=== PATIENT | female | born 1975 | race Caucasian/White ===

== ENCOUNTER 2017-11-01 20:38 | Observation (INO) | payer OTHER ==
[~2017-11-01] VITALS: Ht 157.5 cm; Wt 71.7 kg
--- NOTE | 2017-11-01 20:42 | ED GI/GU/ABDOMINAL COMPLAINT ---
History of Present Illness General Chief Complaint: Abdominal Pain/Flank Pain Stated Complaint: BIBA ABD PAIN Source: patient Exam Limitations: no limitations Vital Signs & Intake/Output Vital Signs & Intake/Output Vital Signs Date Time Temp Pulse Resp B/P B/P Pulse O2 O2 Flow FiO2 Mean Ox Delivery Rate 11/02 0425 98.4 56 18 108/70 99 Room Air 11/02 0346 98.5 60 16 100/57 98 Room Air 11/01 2054 98.3 75 20 125/60 100 Room Air ED Intake and Output 11/02 0000 11/01 1200 Intake Total 0 Output Total Balance 0 Intake, Oral 0 Allergies Coded Allergies: No Known Allergies (11/01/17) Triage Nurses Notes Reviewed? yes ? n Is pt currently ? No Duration: hour(s): Timing: recent history Quality/Severity: cramping, sharpness Location: epigastric, right upper quadrant Radiation: right shoulder Activities at Onset: none Prior Abdominal Problems: none Modifying Factors: Worsens With: defecating, palpation. Associated Symptoms: abdominal pain HPI: 42 yo woman presents with upper abdominal pain and diarrhea that began after lunch. She shares that she had beef empanadas and a fruit smoothie. Shortly afterwards , she began feeling unwell, with upper abdominal pain, several episodes of diarrhea, without nausea or vomiting. She note the pain is burning, is present in mid epigastrum and right upper quadrant. She also feels the discomfort in her right shoulder. She notes no fever, chills, dizziness, chest pain, dysuria, polyuria. She is otherwise well. Past History Medical History Any Pertinent Medical History? none Surgical History Surgical History: none Family History Hx Contributory? No Review of Systems Review of Systems Constitutional: Reports: no symptoms. EENTM: Reports: no symptoms. Respiratory: Reports: no symptoms. Cardiovascular: Reports: no symptoms. GI: Reports: no symptoms. Genitourinary: Reports: no symptoms. Musculoskeletal: Reports: no symptoms. Skin: Reports: no symptoms. Neurological/Psychological: Reports: no symptoms. Hematologic/Endocrine: Reports: no symptoms. Immunologic/Allergic: Reports: no symptoms. All Other Systems: Reviewed and Negative Physical Exam Physical Exam General Appearance: well developed/nourished, mild distress Head: atraumatic, normal appearance Eyes: Bilateral: normal appearance. Ears, Nose, Throat, Mouth: hearing grossly normal, moist mucous membrane Neck: normal inspection, supple, full range of motion Respiratory: normal breath sounds, chest non-tender, no respiratory distress, quiet respiration, lungs clear Cardiovascular: regular rate/rhythm Gastrointestinal: normal bowel sounds, soft, ruq tenderness without fernandes's sign, mid epigastric tenderness to palpation, no rebound. no guarding. Back: normal inspection Extremities: normal range of motion Neurologic/Psych: no motor/sensory deficits, awake, alert, oriented x 3 Skin: intact, normal color, warm/dry Core Measures ACS in differential dx? No Sepsis Present: No Sepsis Focused Exam Completed? No Progress Differential Diagnosis: appendicitis, cholecystitis, diverticulitis, gastritis, hepatitis, pancreatitis Plan of Care: Orders Procedure Date/time Status Nothing by Mouth 11/02 B Active LIPASE 11/02 07 Active HEPATIC FUNCTION PANEL 11/02 07 Active CBC WITHOUT DIFFERENTIAL 11/02 0700 Active BASIC ELECTROLYTES PLUS BUN&CR 11/02 0700 Active Vital Signs 11/02 0425 Active Teach/Educate 11/02 042 Active Pain Treatment and Response 11/02 042 Active Nutritional Intake, Monitor 11/02 042 Active Isolation 11/02 0425 Active Intake & Output 11/02 0425 Active Patient Care Conference 11/02 0425 Active Activity/Ambulation 11/02 0425 Active Pathway - chart 11/02 0125 Active Patient Data 11/02 0125 Active Vital Signs 11/02 0125 Active Intake & Output 11/02 0125 Active Code Status 11/02 0125 Active US-LIMITED ABDOMEN 11/02 0016 Active Saline Lock 11/[address] in observation 11/02 0014 Active Misc Message 11/02 0014 Active ED Holding Orders 11/02 0014 Active Vital Signs 11/02 0014 Active Code Status 11/02 0014 Complete VTE Mechanical Prophylaxis 11/02 UNK Active HUMAN BETA HCG SCREEN 11/01 2204 Complete TROPONIN LEVEL 11/01 204 Complete LIPASE 11/01 204 Complete HEPATIC FUNCTION PANEL 11/01 2041 Complete CBC WITHOUT DIFFERENTIAL 11/01 2041 Complete BASIC METABOLIC PANEL 11/01 2041 Complete AMYLASE 11/01 2041 Complete EKG 11/01 2041 Active Current Medications Sig/Arian Start time Last Medication Dose Stop Time Status Admin Dextrose/Sodium 1,000 ML Q10H 11/02 0130 AC 11/02 Chloride 0245 (D5W-1/2 Normal Saline 1000ML) Ketorolac 30 MG Q8P PRN 11/02 129 AC Tromethamine (Toradol) Morphine Sulfate 2 MG Q3P PRN 11/02 129 AC (MORPHINE SULFATE) Morphine Sulfate 4 MG Q3P PRN 11/02 129 AC (MORPHINE SULFATE) Ondansetron HCl 4 MG Q6P PRN 11/02 129 AC (Zofran) Laboratory Tests 11/02/17 0125: Total Bilirubin Cancelled, Direct Bilirubin Cancelled, AST Cancelled, ALT Cancelled, Alkaline Phosphatase Cancelled, Total Protein Cancelled, Albumin Cancelled 11/01/17 2204: Anion Gap 7, Estimated GFR > 60, BUN/Creatinine Ratio 21.7, Glucose 118 H, Calcium 9.7, Total Bilirubin 1.5 H, Direct Bilirubin 0.3, AST 724 H, ALT 443 H, Alkaline Phosphatase 73, Troponin I < 0.01, Total Protein 7.3, Albumin 4.1, Amylase 67, Lipase 258, Total Beta HCG NEGATIVE, CBC w Diff MAN DIFF ORDERED, RBC 4.74, MCV 93.0, MCH 31.5 H, MCHC 33.9, RDW 12.0, MPV 8.0, Gran % 93.2 H, Lymphocytes % 2.5 L, Monocytes % 4.0, Eosinophils % 0.2, Basophils % 0.1, Absolute Granulocytes 13.7 H, Segmented Neutrophils 84 H, Band Neutrophils 8 H, Absolute Lymphocytes 0.4 L, Lymphocytes 6 L, Monocytes 2, Absolute Monocytes 0.6, Absolute Eosinophils 0, Absolute Basophils 0, Platelet Estimate ADEQUATE, Normocytic RBCs VERIFIED, Normochromic RBCs VERIFIED 11/01/17 2103: Total Beta HCG Cancelled Diagnostic Imaging: Viewed by Me: CT Scan. Discussed w/RAD: CT Scan. Radiology Impression: PATIENT: CHARLES BARKSDALE PRESENT AGE: 42 PATIENT ACCOUNT NO: [id number] : 74 LOCATION: [facility] ORDERING PHYSICIAN: Jose Barbour MD SERVICE DATE: 11/01/17 EXAM TYPE: CAT - CT ABD & PELVIS W/O IV CONTRAS EXAMINATION: CT ABD PELVIS W/O IV CONTRAS CLINICAL INFORMATION: Reason for Study:
Presumptive Dx: ruq pain, ?choly
Signs Symptoms: room 10
COMPARISON: None TECHNIQUE: Multidetector volumetric imaging was performed from the superior aspect of the liver through the pubic symphysis noncontrasted study Sagittal and coronal reformatted images were obtained on the technologist's workstation. DLP: 334 mGy-cm FINDINGS: LOWER THORAX: Included lung bases are clear. HEPATOBILIARY: No focal hepatic lesions. No biliary ductal dilatation. GALLBLADDER: Gallbladder unremarkable. SPLEEN: Spleen is normal in size. PANCREAS: No focal mass or ductal dilatation. STOMACH AND GASTROINTESTINAL TRACT: Stomach is grossly unremarkable. There is no bowel distention or thickening. Appendix not visualized however no evidence of inflammation in the RIGHT lower quadrant. There is excess amount of stool in the cecum probably constipation ADRENALS: No adrenal nodules. KIDNEYS/URETERS: No hydronephrosis, stones or solid mass lesions. URINARY BLADDER: Partially decompressed. PELVIC VISCERA: There is IUD in place. There are bilateral tubal ligation's. PERITONEUM: No free air or fluid. LYMPH NODES: No lymphadenopathy. VASCULAR:Abdominal aorta normal in size, no aneurysm found. BONES, ABDOMINAL WALL AND SOFT TISSUES: Age-appropriate changes of the spine and skeletal system, no destructive osteolytic or osteosclerotic bone lesion found IMPRESSION: 1. Study Limited noncontrast exam. The liver and the gallbladder are unremarkable. CT scan has limited sensitivity to assess for cholecystitis, if clinically suspected consider follow-up ultrasound and/or HIDA scan. 2. IUD in place and probably tubal ligation devices. 3. Excess amount of stool in the cecum. Could be constipation. DICTATED BY: Prabhjot Jasso MD DATE/TIME DICTATED:11/01/172302 TUBE WASHER:MICKEY DATE/TIME TRANSCRIBED:11/01/172302 CONFIDENTIAL, DO NOT COPY WITHOUT APPROPRIATE AUTHORIZATION. <Electronically signed in Other Vendor System> SIGNED BY: Prabhjot Jasso MD 11/01/17 1554 Initial ED EKG: normal axis, nsr, non specific changes Departure Departure Disposition: HOME OR SELF CARE Condition: Stable Clinical Impression Primary Impression: Abdominal pain Secondary Impressions: Elevated LFTs Referrals: João GARCIA,Milad Araujo Departure Forms: Customer Survey General Discharge Information Comments 11/01/17, 23:35... discussed with dr. roberts... pt with ruq tenderness, elevated lft's, benign ct scan... still concerned re: cholecystitis. Observation Note Spoke With: Lalito GARCIA,Pedro Basurto Patient In: Non-ED OBS Care Area Rationale for Observation: My rational for observation is as follows . pt with elevated lft's, clinical concern for cholecystisis, but with benign ct scan. pt merits serial abdominal exams, u/s in AM, repeat labs in AM, consider GI consult.
[2017-11-01 22:12] LABS: ABSOLUTE BASOPHIL COUNT 0 /CUMM (0.0-0.2); ABSOLUTE EOSINOPHIL COUNT 0 /CUMM (0.0-0.7); ABSOLUTE GRANULOCYTE CT 13.7 /CUMM (1.4-6.5); ABSOLUTE LYMPH COUNT 0.4 /CUMM (1.2-3.4); ABSOLUTE MONOCYTE COUNT 0.6 /CUMM (0.10-0.60); BASOPHIL % 0.1 % (0.0-2.0); EOSINOPHIL % 0.2 % (0-5); GRANULOCYTE % 93.2 % (42.2-75.2); HEMATOCRIT 44.1 % (37-47); MEAN CORPUSCULAR HGB 31.5 PG (27.0-31.0); MEAN CORPUSCULAR HGB CONC 33.9 G/DL (33.0-37.0); PLATELET COUNT 260 /CUMM (130-400); RED BLOOD CELL CT 4.74 /CUMM (4.20-5.40); WHITE BLOOD CELL COUNT 14.7 /CUMM (4.8-10.8)
--- NOTE | 2017-11-01 23:20 | CT SCAN REPORT ---
EXAMINATION: CT ABD PELVIS W/O IV CONTRAS CLINICAL INFORMATION: Reason for Study:
Presumptive Dx: ruq pain, ?choly
Signs Symptoms: room 10
COMPARISON: None TECHNIQUE: Multidetector volumetric imaging was performed from the superior aspect of the liver through the pubic symphysis noncontrasted study Sagittal and coronal reformatted images were obtained on the technologist's workstation. DLP: 334 mGy-cm FINDINGS: LOWER THORAX: Included lung bases are clear. HEPATOBILIARY: No focal hepatic lesions. No biliary ductal dilatation. GALLBLADDER: Gallbladder unremarkable. SPLEEN: Spleen is normal in size. PANCREAS: No focal mass or ductal dilatation. STOMACH AND GASTROINTESTINAL TRACT: Stomach is grossly unremarkable. There is no bowel distention or thickening. Appendix not visualized however no evidence of inflammation in the RIGHT lower quadrant. There is excess amount of stool in the cecum probably constipation ADRENALS: No adrenal nodules. KIDNEYS/URETERS: No hydronephrosis, stones or solid mass lesions. URINARY BLADDER: Partially decompressed. PELVIC VISCERA: There is IUD in place. There are bilateral tubal ligation's. PERITONEUM: No free air or fluid. LYMPH NODES: No lymphadenopathy. VASCULAR:Abdominal aorta normal in size, no aneurysm found. BONES, ABDOMINAL WALL AND SOFT TISSUES: Age-appropriate changes of the spine and skeletal system, no destructive osteolytic or osteosclerotic bone lesion found IMPRESSION: 1. Study Limited noncontrast exam. The liver and the gallbladder are unremarkable. CT scan has limited sensitivity to assess for cholecystitis, if clinically suspected consider follow-up ultrasound and/or HIDA scan. 2. IUD in place and probably tubal ligation devices. 3. Excess amount of stool in the cecum. Could be constipation.
--- NOTE | 2017-11-02 01:20 | Cons- General Surgery ---
Karen Ryan 11/02/17 0110: General Information and HPI Consulting Request Date of Consult: 11/02/17 Requested By: Dr. Barbour Reason for Consult: right upper quadrant pain Source of Information: patient, family Exam Limitations: no limitations History of Present Illness: 42-year-old healthy female presents to the emergency room complaining of diffuse epigastric pain that radiated to the right upper quadrant that began earlier today after lunch. Around 2:30 today she went out to have lunch with her friend and started to have diffuse abdominal cramping pressure with the sensation of fullness underneath her ribs followed by 4 episodes of diarrhea. She felt that she was having gas pains however the pressure did not subside. She felt nauseous however had no episodes of vomiting. Patient denies fever or chills and is otherwise healthy. She recently was on amoxicillin for a right ear infection. She has finished this medication Allergies/Medications Allergies: Coded Allergies: No Known Allergies (11/01/17) Current Medications: Current Medications Sig/Arian Start time Last Medication Dose Route Stop Time Status Admin Acetaminophen 0 .STK-MED ONE 11/02 2215 DC IV Acetaminophen 1,000 MG ONCE ONE 11/01 2100 DC 11/01 N/A 1 UNIT IV 11/01 2113 2224 Ketorolac 0 .STK-MED ONE 11/02 2215 DC Tromethamine .ROUTE Ketorolac 30 MG ONCE ONE 11/01 2100 DC 11/01 Tromethamine IV 11/01 2100 2224 Pantoprazole Sodium 0 .STK-MED ONE 11/02 2215 DC IV Pantoprazole Sodium 40 MG ONCE ONE 11/01 2100 DC 11/01 IV 11/01 2101 2224 Past History Medical History Other Medical Hx: No prior medical history Surgical History Pertinent Surgical History: 1 Psychosocial History Where Do You Live? Home Smoking Status: Current Everyday Smoker ETOH Use: denies use Review of Systems Review of Systems Constitutional: Denies: chills, diaphoresis, fever. EENTM: Denies: no symptoms. Cardiovascular: Denies: chest pain, palpitations, peripheral edema. Respiratory: Denies: cough, short of breath. GI: Reports: abdominal pain, bloating, diarrhea, nausea. Denies: vomiting. Genitourinary: Denies: no symptoms. Musculoskeletal: Denies: no symptoms. Exam & Diagnostic Data Vital Signs and I&O Vital Signs Date Time Temp Pulse Resp B/P B/P Pulse O2 O2 Flow FiO2 Mean Ox Delivery Rate 11/01 2053 98.3 75 20 125/60 100 Room Air Intake & Output 11/02 1600 Intake Total 0 Output Total Balance 0 Intake, Oral 0 Physical Exam: Physical examination patient is alert and oriented and appears comfortable HEENT is within normal limits Neck is supple nontender with active range of motion Chest is clear to auscultation symmetric without rales rhonchi or wheeze Heart regular rate rhythm without murmurs rubs gallops Abdomen is rounded with mild distention no guarding no rebound positive bowel sounds there is mild tenderness in the epigastric area and right upper quadrant but no Willett sign. She has just been medicated and her symptoms have been relieved Bilateral lower extremities are without edema and have good perfusion Last 24 Hours of Labs: Laboratory Tests 11/01 2103 Chemistry Sodium (137 - 145 mmol/L) 139 Potassium (3.5 - 5.1 mmol/L) 3.6 Chloride (98 - 107 mmol/L) 103 Carbon Dioxide (22 - 30 mmol/L) 29 Anion Gap (5 - 16) 7 BUN (7 - 17 mg/dL) 13 Creatinine (0.5 - 1.0 mg/dL) 0.6 Estimated GFR (>60 ml/min) > 60 BUN/Creatinine Ratio (7 - 25 %) 21.7 Glucose (65 - 99 mg/dL) 118 H Calcium (8.4 - 10.2 mg/dL) 9.7 Total Bilirubin (0.2 - 1.3 mg/dL) 1.5 H Direct Bilirubin (< 0.4 mg/dL) 0.3 AST (14 - 36 U/L) 724 H ALT (9 - 52 U/L) 443 H Alkaline Phosphatase (<127 U/L) 73 Troponin I (< 0.11 ng/ml) < 0.01 Total Protein (6.3 - 8.2 g/dL) 7.3 Albumin (3.5 - 5.0 g/dL) 4.1 Amylase (30 - 110 U/L) 67 Lipase (23 - 300 U/L) 258 Total Beta HCG (NEGATIVE) NEGATIVE Cancelled Hematology CBC w Diff MAN DIFF ORDERED WBC (4.8 - 10.8 /CUMM) 14.7 H RBC (4.20 - 5.40 /CUMM) 4.74 Hgb (12.0 - 16.0 G/DL) 14.9 Hct (37 - 47 %) 44.1 MCV (81.0 - 99.0 FL) 93.0 MCH (27.0 - 31.0 PG) 31.5 H MCHC (33.0 - 37.0 G/DL) 33.9 RDW (11.5 - 14.5 %) 12.0 Plt Count (130 - 400 /CUMM) 260 MPV (7.4 - 10.4 FL) 8.0 Gran % (42.2 - 75.2 %) 93.2 H Lymphocytes % (20.5 - 51.1 %) 2.5 L Monocytes % (1.7 - 9.3 %) 4.0 Eosinophils % (0 - 5 %) 0.2 Basophils % (0.0 - 2.0 %) 0.1 Absolute Granulocytes (1.4 - 6.5 /CUMM) 13.7 H Segmented Neutrophils (42.2 - 75.2 %) 84 H Band Neutrophils (0.0 - 5.0 %) 8 H Absolute Lymphocytes (1.2 - 3.4 /CUMM) 0.4 L Lymphocytes (20.5 - 51.1 %) 6 L Monocytes (1.7 - 9.3 %) 2 Absolute Monocytes (0.10 - 0.60 /CUMM) 0.6 Absolute Eosinophils (0.0 - 0.7 /CUMM) 0 Absolute Basophils (0.0 - 0.2 /CUMM) 0 Platelet Estimate (ADEQUATE) ADEQUATE Normocytic RBCs VERIFIED Normochromic RBCs VERIFIED Imaging Results: CAT scan of the abdomen and pelvis show a normal appearing gallbladder Admission Lab Results I reviewed the following labs: Laboratory Tests 11/01 11/01 2204 2103 Chemistry Sodium (137 - 145 mmol/L) 139 Potassium (3.5 - 5.1 mmol/L) 3.6 Chloride (98 - 107 mmol/L) 103 Carbon Dioxide (22 - 30 mmol/L) 29 Anion Gap (5 - 16) 7 BUN (7 - 17 mg/dL) 13 Creatinine (0.5 - 1.0 mg/dL) 0.6 Estimated GFR (>60 ml/min) > 60 BUN/Creatinine Ratio (7 - 25 %) 21.7 Glucose (65 - 99 mg/dL) 118 H Calcium (8.4 - 10.2 mg/dL) 9.7 Total Bilirubin (0.2 - 1.3 mg/dL) 1.5 H Direct Bilirubin (< 0.4 mg/dL) 0.3 AST (14 - 36 U/L) 724 H ALT (9 - 52 U/L) 443 H Alkaline Phosphatase (<127 U/L) 73 Troponin I (< 0.11 ng/ml) < 0.01 Total Protein (6.3 - 8.2 g/dL) 7.3 Albumin (3.5 - 5.0 g/dL) 4.1 Amylase (30 - 110 U/L) 67 Lipase (23 - 300 U/L) 258 Total Beta HCG (NEGATIVE) NEGATIVE Cancelled Hematology CBC w Diff MAN DIFF ORDERED WBC (4.8 - 10.8 /CUMM) 14.7 H RBC (4.20 - 5.40 /CUMM) 4.74 Hgb (12.0 - 16.0 G/DL) 14.9 Hct (37 - 47 %) 44.1 MCV (81.0 - 99.0 FL) 93.0 MCH (27.0 - 31.0 PG) 31.5 H MCHC (33.0 - 37.0 G/DL) 33.9 RDW (11.5 - 14.5 %) 12.0 Plt Count (130 - 400 /CUMM) 260 MPV (7.4 - 10.4 FL) 8.0 Gran % (42.2 - 75.2 %) 93.2 H Lymphocytes % (20.5 - 51.1 %) 2.5 L Monocytes % (1.7 - 9.3 %) 4.0 Eosinophils % (0 - 5 %) 0.2 Basophils % (0.0 - 2.0 %) 0.1 Absolute Granulocytes (1.4 - 6.5 /CUMM) 13.7 H Segmented Neutrophils (42.2 - 75.2 %) 84 H Band Neutrophils (0.0 - 5.0 %) 8 H Absolute Lymphocytes (1.2 - 3.4 /CUMM) 0.4 L Lymphocytes (20.5 - 51.1 %) 6 L Monocytes (1.7 - 9.3 %) 2 Absolute Monocytes (0.10 - 0.60 /CUMM) 0.6 Absolute Eosinophils (0.0 - 0.7 /CUMM) 0 Absolute Basophils (0.0 - 0.2 /CUMM) 0 Platelet Estimate (ADEQUATE) ADEQUATE Normocytic RBCs VERIFIED Normochromic RBCs VERIFIED Assessment/Plan Assessment/Plan 42-year-old healthy female presented to the emergency room with acute right upper quadrant pain and tenderness. Symptoms concerning for acute cholecystitis however CAT scan shows normal findings. She has an elevated WBC count with elevation in her LFTs. She will have repeat lab work in the a.m. We will order an ultrasound in the morning until then she will be nothing by mouth and continue with IV fluids. Serial abdominal exams and pain medication as needed. Alps for DVT prophylaxis. She reports no major medical problems and takes no meds at home Problem List: 1. Abdominal pain Consult Acknowledgment - Thank you for your consult request. Pedro Starkey MD 11/02/17 1009: Assessment/Plan Consult Acknowledgment - Thank you for your consult request. Attending MD Review Statement Attending Statement Attending MD Statement: examined this patient, discuss w/resident/PA/LABEL DRIER, reviewed images Attending Assessment/Plan: This is a healthy 42-year-old woman without medical or surgical history who presents with severe epigastric and right upper quadrant abdominal pain with radiation to the back. This is associated with nausea and diarrhea, profuse. This is the first episode. Pain began after lunch yesterday and was unrelenting. Currently she feels much better. There is absence of pain. Physical examination reveals a healthy-appearing woman in no distress. HEENT is within normal limits. Heart is regular no murmurs rubs or gallops, lungs are clear to auscultation bilaterally. Abdomen soft nontender negative Willett sign. No hernias no mass. Laboratory data reveals white cell count of 14,000 and elevated AST, ALT and total bilirubin. CT scan images were personally reviewed. Findings show no gallbladder distention or pericholecystic inflammatory changes or gallstones. Images are difficult to interpret for biliary ductal dilatation due to the lack of IV contrast. Overall impression is that of choledocholithiasis or viral hepatitis. Ultrasound is currently pending. If there is no evidence of gallstones or secondary changes of choledocholithiasis, she can be started on a clear liquid diet. Hepatitis panel is pending. Final disposition will be determined after above testing.
[2017-11-02 04:25] VITALS: BP 108/70
--- NOTE | 2017-11-02 07:29 | PN- Student ---
See Addendum Keila Travis 11/02/17 0617: Subjective Subjective: Went to see pt this morning and she is feeling much improved from her time of admission yesterday. This morning she does not have any pain. Since her four episodes of diarrhea prior to admission, the pt hasn't had any more. She hasn't had any episodes of vomiting. Her diaphoresis and chills from yesterday upon admission have resolved. Yesterday she felt she was having trouble breathing, this morning she states she is breathing w/o difficulty. Objective Objective: Gen: O&Ax3, laying in bed comfortably, in no apparent distress Lungs: CTA Heart: S1 and S2 normal, RRR Abdomen: normoactive bs, soft, nt/nd, no rigidity/guarding, negative fernandes sign Skin: warm/dry Assessment/Plan Assessment: Pt is a 42 yo female without any PMHx that presented yesterday with RUQ/ epigastric pain. Was admitted yesterday and will go for US to assess for cholecystitis this am, currently stable. Plan: -Abdominal US this AM -AM labs pending, monitor -NPO, IV fluids -Pain control as ordered -Unasyn q6 IV -Zofran prn for nausea Chacha Anthony 11/02/17 2365: Assessment/Plan Plan: AGREE WITH ABOVE MEGS NOTE currently npo / iv fluids iv unasyn for possible cholecystitis f/u LFTs and abdominal ultrasound hep sc added - dvt ppx protonix - gi ppx may consider GI consult if worsening transaminitis / evidence of cbd stone by ultrasound will d/w observation status given possibility for discharge in the next 24 hours
[2017-11-02 10:12] LABS: ABSOLUTE BASOPHIL COUNT 0 /CUMM (0.0-0.2); ABSOLUTE EOSINOPHIL COUNT 0 /CUMM (0.0-0.7); ABSOLUTE GRANULOCYTE CT 20.4 /CUMM (1.4-6.5); ABSOLUTE LYMPH COUNT 0.6 /CUMM (1.2-3.4); ABSOLUTE MONOCYTE COUNT 0.6 /CUMM (0.10-0.60); BASOPHIL % 0 % (0.0-2.0); EOSINOPHIL % 0 % (0-5); GRANULOCYTE % 94.5 % (42.2-75.2); HEMATOCRIT 40.4 % (37-47); MEAN CORPUSCULAR HGB 31.8 PG (27.0-31.0); MEAN CORPUSCULAR HGB CONC 34.2 G/DL (33.0-37.0); MEAN PLATELET VOLUME 8.8 FL (7.4-10.4); PLATELET COUNT 296 /CUMM (130-400); RBC DISTRIBUTION WIDTH 12.1 % (11.5-14.5); RED BLOOD CELL CT 4.34 /CUMM (4.20-5.40); WHITE BLOOD CELL COUNT 21.6 /CUMM (4.8-10.8)
--- NOTE | 2017-11-02 10:13 | ULTRASOUND REPORT ---
EXAMINATION: US ABDOMEN LIMITED CLINICAL INFORMATION: Back pain and right upper quadrant abdominal pain. Sweats. Shortness of breath. Weakness.. COMPARISON: CT scan of the abdomen and pelvis 11/01/2017. TECHNIQUE: Real-time imaging of the right upper quadrant abdominal viscera. FINDINGS: PANCREAS: Visualized portions of the pancreatic head and body are normal. The tail is largely obscured by gas. LIVER: Normal. The liver demonstrates normal size, contour and echogenicity. No focal lesion or intrahepatic biliary duct dilatation. GALLBLADDER: Normal. The gallbladder is physiologically distended without evidence of stones, sludge, polyps, wall thickening or pericholecystic fluid. COMMON BILE DUCT: Normal in caliber measuring 0.4 cm in diameter. RIGHT KIDNEY: Normal. No hydronephrosis. No renal calculi or focal parenchymal lesions. The kidney measures 10.2 cm in maximum dimension. FREE FLUID: None. IMPRESSION: Normal right upper quadrant ultrasound.
[2017-11-02 14:06] VITALS: BP 120/70
--- NOTE | 2017-11-02 21:00 | Cons- Gastroenterology ---
General Information and HPI Consulting Request Date of Consult: 11/02/17 Requested By: Pedro Starkey MD Reason for Consult: 1. Abnormal liver associated enzymes 2. Epigastric Pain Source of Information: patient Exam Limitations: no limitations History of Present Illness: Ms. Bustos is a 42-year-old female who is in her usual state of health until the night prior to admission when she went out to dinner with a friend. She had an empanada as as well as a frozen fruit drink from [facility]. Her friend had the same thing to eat with the exception of the fruit drink. She went home and was doing well however she developed epigastric discomfort and bloating and took Gas -X. She then developed bandlike epigastric pain which radiated to the back associated with diaphoresis. She did not have any nausea or vomiting and she did not have a fever although she did develop chills. She does not use Tylenol. she does not have any tattoos. She has no history of excessive alcohol use or IV drug use. She drinks rare social alcohol. She has a new partner with whom she is monogamous. She reports that she had an ear infection last week and was given amoxicillin for this. She has no family history of liver disease. She has had no insect bites and has no unusual travel recently. She has not consumed any raw seafood. She has lived in this country [place] over [place]. She is currently feeling well and is no longer having any abdominal pain. She had a CT Scan of the abdomen and pelvis, the results of which are as follows : FINDINGS: LOWER THORAX: Included lung bases are clear. HEPATOBILIARY: No focal hepatic lesions. No biliary ductal dilatation. GALLBLADDER: Gallbladder unremarkable. SPLEEN: Spleen is normal in size. PANCREAS: No focal mass or ductal dilatation. STOMACH AND GASTROINTESTINAL TRACT: Stomach is grossly unremarkable. There is no bowel distention or thickening. Appendix not visualized however no evidence of inflammation in the RIGHT lower quadrant. There is excess amount of stool in the cecum probably constipation ADRENALS: No adrenal nodules. KIDNEYS/URETERS: No hydronephrosis, stones or solid mass lesions. URINARY BLADDER: Partially decompressed. PELVIC VISCERA: There is IUD in place. There are bilateral tubal ligation's. PERITONEUM: No free air or fluid. LYMPH NODES: No lymphadenopathy. VASCULAR:Abdominal aorta normal in size, no aneurysm found. BONES, ABDOMINAL WALL AND SOFT TISSUES: Age-appropriate changes of the spine and skeletal system, no destructive osteolytic or osteosclerotic bone lesion found IMPRESSION: 1. Study Limited noncontrast exam. The liver and the gallbladder are unremarkable. CT scan has limited sensitivity to assess for cholecystitis, if clinically suspected consider follow-up ultrasound and/or HIDA scan. 2. IUD in place and probably tubal ligation devices. 3. Excess amount of stool in the cecum. Could be constipation. She had an ultrasound the results of which are below. FINDINGS: (US) PANCREAS: Visualized portions of the pancreatic head and body are normal. The tail is largely obscured by gas. LIVER: Normal. The liver demonstrates normal size, contour and echogenicity. No focal lesion or intrahepatic biliary duct dilatation. GALLBLADDER: Normal. The gallbladder is physiologically distended without evidence of stones, sludge, polyps, wall thickening or pericholecystic fluid. COMMON BILE DUCT: Normal in caliber measuring 0.4 cm in diameter. RIGHT KIDNEY: Normal. No hydronephrosis. No renal calculi or focal parenchymal lesions. The kidney measures 10.2 cm in maximum dimension. FREE FLUID: None. IMPRESSION: Normal right upper quadrant ultrasound. On admission her WBC were 14.7 with an H&H of 14.9/44.1 and 260,000 platelets. Next morning her WBC increased to 21.6 with an H&H of 13.8/40.8 and 296,000 platelets. She had 84 segs and 11 bands. Her total bilirubin went from 1.5-2. Her AST/ALT from 724/443 to 722/882. Her alk phos went from 73-68. Serologies for hepatitis A, B, and C were all negative/nonreactive. She is eager to eat. She is quite comfortable. She has no family history of liver disease or biliary disease. Allergies/Medications Allergies: Coded Allergies: No Known Allergies (11/01/17) Home Med List: No Known Home Medications Past History Travel History Traveled to [place] past 21 day No Medical History Blood Transfusion Hx: No Neurological: NONE EENT: NONE Cardiovascular: NONE Respiratory: NONE Gastrointestinal: NONE Hepatic: cholangitis Renal: NONE Musculoskeletal: NONE Psychiatric: NONE Endocrine: NONE Blood Disorders: NONE Cancer(s): NONE DRILL OPERATOR PNEUMATIC/Reproductive: NONE Other Medical Hx: No prior medical history Surgical History Surgical History: 1 Psychosocial History Where Do You Live? Home Smoking Status: Current Everyday Smoker ETOH Use: denies use Review of Systems Review of Systems Constitutional: Reports: see HPI. EENTM: Reports: no symptoms. Cardiovascular: Reports: no symptoms. Respiratory: Reports: no symptoms. GI: Reports: see HPI. Genitourinary: Reports: see HPI. Musculoskeletal: Reports: see HPI. Skin: Reports: see HPI. Neurological/Psychological: Reports: see HPI. Hematologic/Endocrine: Reports: see HPI. Exam & Diagnostic Data Vital Signs and I&O Vital Signs Date Time Temp Pulse Resp B/P B/P Pulse O2 O2 Flow FiO2 Mean Ox Delivery Rate 11/02 1406 99.7 60 18 120/70 98 Room Air 11/02 0425 98.4 56 18 108/70 99 Room Air 11/02 0346 98.5 60 16 100/57 98 Room Air 11/01 2054 98.3 75 20 125/60 100 Room Air Intake & Output 11/02 1600 11/02 0400 11/01 1600 11/01 0400 10/31 1600 10/31 0400 Intake Total 200 0 Output Total Balance 200 0 Intake, IV 200 Intake, Oral 0 Patient 158 lb Weight Physical Exam General Appearance: well developed/nourished, no apparent distress, comfortable Head: atraumatic, normal appearance Eyes: Bilateral: normal appearance. Ears, Nose, Throat: hearing grossly normal Neck: supple, full range of motion Respiratory: normal breath sounds, no respiratory distress, lungs clear Cardiovascular: regular rate/rhythm, Normal S1 and S2 without rub, murmur or gallop Gastrointestinal: normal bowel sounds, soft, non-tender Back: normal inspection Extremities: normal inspection, no edema Neurologic/Psych: awake, alert, oriented x 3 Cranial Nerves: Cranial nerves II-XII grossly intact Skin: intact, normal color, warm/dry Results Pertinent Lab Results: Laboratory Tests 11/02 11/02 0907 0700 Chemistry Sodium (137 - 145 mmol/L) 138 Potassium (3.5 - 5.1 mmol/L) 4.2 Chloride (98 - 107 mmol/L) 107 Carbon Dioxide (22 - 30 mmol/L) 22 Anion Gap (5 - 16) 9 BUN (7 - 17 mg/dL) 9 Creatinine (0.5 - 1.0 mg/dL) 0.6 Estimated GFR (>60 ml/min) > 60 BUN/Creatinine Ratio (7 - 25 %) 15.0 Total Bilirubin (0.2 - 1.3 mg/dL) 2.0 H Direct Bilirubin (< 0.4 mg/dL) 0.3 AST (14 - 36 U/L) 722 H ALT (9 - 52 U/L) 882 H Alkaline Phosphatase (<127 U/L) 68 Total Protein (6.3 - 8.2 g/dL) 6.9 Albumin (3.5 - 5.0 g/dL) 3.7 Lipase (23 - 300 U/L) 65 Hematology CBC w Diff MAN DIFF ORDERED WBC (4.8 - 10.8 /CUMM) 21.6 H RBC (4.20 - 5.40 /CUMM) 4.34 Hgb (12.0 - 16.0 G/DL) 13.8 Hct (37 - 47 %) 40.4 MCV (81.0 - 99.0 FL) 93.0 MCH (27.0 - 31.0 PG) 31.8 H MCHC (33.0 - 37.0 G/DL) 34.2 RDW (11.5 - 14.5 %) 12.1 Plt Count (130 - 400 /CUMM) 296 MPV (7.4 - 10.4 FL) 8.8 Gran % (42.2 - 75.2 %) 94.5 H Lymphocytes % (20.5 - 51.1 %) 2.6 L Monocytes % (1.7 - 9.3 %) 2.9 Eosinophils % (0 - 5 %) 0 Basophils % (0.0 - 2.0 %) 0 Absolute Granulocytes (1.4 - 6.5 /CUMM) 20.4 H Segmented Neutrophils (42.2 - 75.2 %) 84 H Band Neutrophils (0.0 - 5.0 %) 11 H Absolute Lymphocytes (1.2 - 3.4 /CUMM) 0.6 L Lymphocytes (20.5 - 51.1 %) 3 L Monocytes (1.7 - 9.3 %) 2 Absolute Monocytes (0.10 - 0.60 /CUMM) 0.6 Absolute Eosinophils (0.0 - 0.7 /CUMM) 0 Absolute Basophils (0.0 - 0.2 /CUMM) 0 Platelet Estimate (ADEQUATE) VERIFIED BY SMEAR Normocytic RBCs VERIFIED Normochromic RBCs VERIFIED Serology Hepatitis A IgM Ab (NONREACTIVE) NONREACTIVE Cancelled Hep Bs Antigen (NONREACTIVE) NONREACTIVE Cancelled Hep B Core IgM Ab Conf (NONREACTIVE) NONREACTIVE Cancelled Hepatitis C Antibody (NONREACTIVE) NONREACTIVE Cancelled 11/02 11/01 0125 2204 Chemistry Sodium (137 - 145 mmol/L) 139 Potassium (3.5 - 5.1 mmol/L) 3.6 Chloride (98 - 107 mmol/L) 103 Carbon Dioxide (22 - 30 mmol/L) 29 Anion Gap (5 - 16) 7 BUN (7 - 17 mg/dL) 13 Creatinine (0.5 - 1.0 mg/dL) 0.6 Estimated GFR (>60 ml/min) > 60 BUN/Creatinine Ratio (7 - 25 %) 21.7 Glucose (65 - 99 mg/dL) 118 H Calcium (8.4 - 10.2 mg/dL) 9.7 Total Bilirubin (0.2 - 1.3 mg/dL) Cancelled 1.5 H Direct Bilirubin (< 0.4 mg/dL) Cancelled 0.3 AST (14 - 36 U/L) Cancelled 724 H ALT (9 - 52 U/L) Cancelled 443 H Alkaline Phosphatase (<127 U/L) Cancelled 73 Troponin I (< 0.11 ng/ml) < 0.01 Total Protein (6.3 - 8.2 g/dL) Cancelled 7.3 Albumin (3.5 - 5.0 g/dL) Cancelled 4.1 Amylase (30 - 110 U/L) 67 Lipase (23 - 300 U/L) 258 Total Beta HCG (NEGATIVE) NEGATIVE Hematology CBC w Diff MAN DIFF ORDERED WBC (4.8 - 10.8 /CUMM) 14.7 H RBC (4.20 - 5.40 /CUMM) 4.74 Hgb (12.0 - 16.0 G/DL) 14.9 Hct (37 - 47 %) 44.1 MCV (81.0 - 99.0 FL) 93.0 MCH (27.0 - 31.0 PG) 31.5 H MCHC (33.0 - 37.0 G/DL) 33.9 RDW (11.5 - 14.5 %) 12.0 Plt Count (130 - 400 /CUMM) 260 MPV (7.4 - 10.4 FL) 8.0 Gran % (42.2 - 75.2 %) 93.2 H Lymphocytes % (20.5 - 51.1 %) 2.5 L Monocytes % (1.7 - 9.3 %) 4.0 Eosinophils % (0 - 5 %) 0.2 Basophils % (0.0 - 2.0 %) 0.1 Absolute Granulocytes (1.4 - 6.5 /CUMM) 13.7 H Segmented Neutrophils (42.2 - 75.2 %) 84 H Band Neutrophils (0.0 - 5.0 %) 8 H Absolute Lymphocytes (1.2 - 3.4 /CUMM) 0.4 L Lymphocytes (20.5 - 51.1 %) 6 L Monocytes (1.7 - 9.3 %) 2 Absolute Monocytes (0.10 - 0.60 /CUMM) 0.6 Absolute Eosinophils (0.0 - 0.7 /CUMM) 0 Absolute Basophils (0.0 - 0.2 /CUMM) 0 Platelet Estimate (ADEQUATE) ADEQUATE Normocytic RBCs VERIFIED Normochromic RBCs VERIFIED 11/01 2102 Chemistry Total Beta HCG Cancelled Assessment/Plan Assessment/Recommendations: ASSESSMENT: 1. Elevated Transaminases 2. Leukocytosis 3. Epigastric Pain 4. Leukocytosis This episode of abdominal pain and abnormal liver-associated enzymes may have been related to the amoxicillin that she took prior to admission. Amoxicillin and persons taking aminopenicillins can cause idiosyncratic liver injury. These cases are characterized by a latency. Of a few days to his long as 2 weeks. The onset of liver injury can occur after the antibiotic is stopped. The serum enzyme pattern associated with amino penicillin liver injury has included hepatocellular pattern with marked elevations in AST and ALT and minimal elevations in alk phos and generally rapid recovery after withdrawal. The abdominal pain may be related to stretching of the hepatic capsule. I do not see any evidence to suggest gallstone disease. It may also represent a first presentation of autoimmune hepatitis although I think this is less likely. And I also think it less likely to represent an initial presentation of AIDS. Nonetheless given the degree of enzyme elevation the same should be ruled out. RECOMMENDATIONS: 1. Check SUKHI with reflex, ASMA, dsDNA, CRP, HIV1/2. Complete tox screen and make sure that Tylenol level has been included. 2. Follow daily CBC, CMP, PT/INR 3. Call her physician Dr. Duke to find out which antibiotic she had been given. 4. Advance diet Consult Acknowledgment - Thank you for your consult request. Consult Acknowledgment - Thank you for your consult request.
[2017-11-02 22:03] VITALS: BP 110/62
[2017-11-03 06:59] VITALS: BP 110/78
--- NOTE | 2017-11-03 08:43 | PN- Student ---
Keila Travis 11/03/17 0835: Subjective Subjective: Pt is feeling great and says that she feels back to her normal self. She has no pain, is eating solid foods w/o n/v. Pt states she is oob frequently without pain. Voiding ok, passing flatus, no BM since episodes of diarrhea 2 days ago. No other compliants at this time. Objective Objective: Gen: O&Ax3, sitting up in bed comfortably, in no apparent distress Lungs: CTA Heart: S1 and S2 normal, RRR Abdomen: normoactive bs, soft, nt/nd, no rigidity/guarding Skin: warm/dry Results Results: Laboratory Tests 11/02/17 0907: Anion Gap 9, Estimated GFR > 60, BUN/Creatinine Ratio 15.0, Total Bilirubin 2.0 H, Direct Bilirubin 0.3, AST 722 H, ALT 882 H, Alkaline Phosphatase 68, Total Protein 6.9, Albumin 3.7, Lipase 65, CBC w Diff MAN DIFF ORDERED, RBC 4.34, MCV 93.0, MCH 31.8 H, MCHC 34.2, RDW 12.1, MPV 8.8, Gran % 94.5 H, Lymphocytes % 2.6 L, Monocytes % 2.9, Eosinophils % 0, Basophils % 0, Absolute Granulocytes 20.4 H, Segmented Neutrophils 84 H, Band Neutrophils 11 H, Absolute Lymphocytes 0.6 L, Lymphocytes 3 L, Monocytes 2, Absolute Monocytes 0.6, Absolute Eosinophils 0, Absolute Basophils 0, Platelet Estimate VERIFIED BY SMEAR, Normocytic RBCs VERIFIED, Normochromic RBCs VERIFIED, Hepatitis A IgM Ab NONREACTIVE, Hep Bs Antigen NONREACTIVE, Hep B Core IgM Ab Conf NONREACTIVE, Hepatitis C Antibody NONREACTIVE 11/02/17 0700: Hepatitis A IgM Ab Cancelled, Hep Bs Antigen Cancelled, Hep B Core IgM Ab Conf Cancelled, Hepatitis C Antibody Cancelled 11/02/17 0125: Total Bilirubin Cancelled, Direct Bilirubin Cancelled, AST Cancelled, ALT Cancelled, Alkaline Phosphatase Cancelled, Total Protein Cancelled, Albumin Cancelled 11/01/17 2204: Anion Gap 7, Estimated GFR > 60, BUN/Creatinine Ratio 21.7, Glucose 118 H, Calcium 9.7, Total Bilirubin 1.5 H, Direct Bilirubin 0.3, AST 724 H, ALT 443 H, Alkaline Phosphatase 73, Troponin I < 0.01, Total Protein 7.3, Albumin 4.1, Amylase 67, Lipase 258, Total Beta HCG NEGATIVE, CBC w Diff MAN DIFF ORDERED, RBC 4.74, MCV 93.0, MCH 31.5 H, MCHC 33.9, RDW 12.0, MPV 8.0, Gran % 93.2 H, Lymphocytes % 2.5 L, Monocytes % 4.0, Eosinophils % 0.2, Basophils % 0.1, Absolute Granulocytes 13.7 H, Segmented Neutrophils 84 H, Band Neutrophils 8 H, Absolute Lymphocytes 0.4 L, Lymphocytes 6 L, Monocytes 2, Absolute Monocytes 0.6, Absolute Eosinophils 0, Absolute Basophils 0, Platelet Estimate ADEQUATE, Normocytic RBCs VERIFIED, Normochromic RBCs VERIFIED 11/01/17 2103: Total Beta HCG Cancelled Assessment/Plan Assessment: This is a 42 yo female that presented with abdominal pain concerning for cholecystitis, US done which showed normal right upper quadrant, currently being medically managed for transaminitis and is stable. Plan: -Abd US done yesterday showed normal RUQ -From surgical standpoint, no further surgical intervention needed at this time -AM labs still pending, follow up -Per GI, pt may be experiencing a liver injury d/t her recent amoxicillin tx for suspected ear infection -Pt is requesting STI testing -Continue w/ reg diet as tolerated -zofran prn nausea -heparin sq for dvt ppx Pedro Starkey MD 11/03/17 1207: Attending MD Review Statement Attending Sign Off Other Findings: As per student note. Patient does not have gallstone disease to explain elevation of LFT. W/U in progress. Appreciate GI input. If liver tests improved, she can be d/c home for outpatient GI f/u.
[2017-11-03 10:34] LABS: ABSOLUTE BASOPHIL COUNT 0 /CUMM (0.0-0.2); ABSOLUTE EOSINOPHIL COUNT 0.1 /CUMM (0.0-0.7); ABSOLUTE LYMPH COUNT 2.4 /CUMM (1.2-3.4); ABSOLUTE MONOCYTE COUNT 0.6 /CUMM (0.10-0.60)
[2017-11-03 10:53] LABS: ABSOLUTE GRANULOCYTE CT 7.7 /CUMM (1.4-6.5); BASOPHIL % 0.3 % (0.0-2.0); EOSINOPHIL % 0.6 % (0-5); GRANULOCYTE % 71.2 % (42.2-75.2); HEMATOCRIT 38.1 % (37-47); MEAN CORPUSCULAR HGB 31.8 PG (27.0-31.0); MEAN CORPUSCULAR VOLUME 93.7 FL (81.0-99.0); PLATELET COUNT 256 /CUMM (130-400); RBC DISTRIBUTION WIDTH 12.3 % (11.5-14.5); RED BLOOD CELL CT 4.07 /CUMM (4.20-5.40); WHITE BLOOD CELL COUNT 10.8 /CUMM (4.8-10.8)
--- NOTE | 2017-11-03 12:11 | Surg Short-stay <48hrs Dis Sum ---
Visit Information Visit Dates Admission Date: 11/02/17 Discharge Date: 11/03/17 Surgical Short Stay DC Summary Admission Diagnosis: Choledocholithiasis Final Diagnosis: Hepatitis, drug induced Procedure(s): None Summary/Significant Findings: Patient has biliary w/u for abdominal pain and elevated LFT. Biliary tree normal by ultrasound and CT. GI consult obtained. Viral hepatitis w/u negative. Suspect drug induced hepatitis from antibiotics given as outpatient for unrelated issue. Condition at Discharge: good Discharge Disposition: home or self care Discharge instructions provided to patient/family: Yes Post discharge follow-up plan: GI one week
--- NOTE | 2017-11-03 12:20 | Patient Discharge Instructions ---
Discharge Instructions General Discharge Information You were seen/treated for: elevated liver enzymes You had these procedures: none Watch for these problems: increased abdominal pain Diet Continue normal diet: Yes Recommended Diet: Regular Activity Full Activity/No Limits: Yes Activity Limited to: Weight bear as tolerated Acute Coronary Syndrome Inclusion Criteria At DC or during hospital stay patient has or had the following: ACS DIAGNOSIS No Discharge Core Measures Meds if any: Prescribed or Continued at Discharge Meds if any: NOT Prescribed or Continued at Discharge Congestive Heart Failure Inclusion Criteria At DC or during hospital stay patient has or had the following: CHF DIAGNOSIS No Discharge Core Measures Meds if any: Prescribed or Continued at Discharge Meds if any: NOT Prescribed or Continued at Discharge Cerebrovascular accident Inclusion Criteria At DC or during hospital stay patient has or had the following: CVA/TIA Diagnosis No Discharge Core Measures Meds if any: Prescribed or Continued at Discharge Meds if any: NOT Prescribed or Continued at Discharge Venous thromboembolism Inclusion Criteria VTE Diagnosis No VTE Type NONE VTE Confirmed by (Test) NONE Discharge Core Measures - Per Current guidelines, there needs to be overlap - treatment for the first 5 days of Warfarin therapy. - If discharged on Warfarin prior to 5 days of - overlap therapy, the patient will need to be - assessed for post discharge needs including - *Post discharge parental anticoagulation - *Warfarin and/or parental anticoagulation education - *Follow up date to check INR post discharge At least 5 days overlap therapy as Inpatient No Meds if any: Prescribed or Continued at Discharge Note: Overlap Therapy is Warfarin and Anticoagulant Meds if any: NOT Prescribed or Continued at Discharge
== END 2017-11-03 13:40 ==
LOC: ERH 20:38 → 2NA 11-02 00:14 → ERHI 11-02 00:14 → ENRESERV 11-02 03:32 → 2NA 11-02 04:14 → ENPENDDIS 11-03 12:25 → 2NA 11-03 13:40
PROVIDERS: Pediatrics; Physician Assistant; Physician Assistant Surgical
DX: K75.89 Other specified inflammatory liver diseases (principal); F17.200 Nicotine dependence, unspecified, uncomplicated; D72.829 Elevated white blood cell count, unspecified; R79.89 Other specified abnormal findings of blood chemistry
CPT/HCPCS: 36592; 74176; 82436; 93005; 93010; 96372; 96374; 96375; G0378; J0131; J1644; J1885; J2405; J7042